=== PATIENT | male | born 1955 | race Caucasian/White ===

== ENCOUNTER 2025-04-27 10:03 | Day surgery (SDC) | payer MEDICARE ==
[2025-04-27 10:50] VITALS: TEMP 97.1
[2025-04-27] MEDS: IV FLUID CONTINUATION 1,000 ML IV ONE (10:56)
[2025-04-27] MEDS: LACTATED RINGERS 1,000 ML IV SCH (10:57)
[2025-04-27] MEDS ORDERED: PROPOFOL 10 MG/ML 20 ML VIAL IV ONE (11:43)
--- NOTE | 2025-04-27 12:04 | P.PCN ---
Date of Procedure: 04/27/25 Procedure(s) Performed: BRIEF HISTORY: Patient is a 69-year-old, pleasant, white male scheduled up anoscopy as a part evaluation of longstanding history of GERD.. History of iron deficiency in the past and was diagnosed with gastric antral vascular ectasia for which he underwent EGD with argon plasma coagulation 2 years ago. Recent labs reveal hemoglobin of 12.5 but iron was low at 9 g/dL PROCEDURE PERFORMED: Esophagogastroduodenoscopy with biopsy and argon plasma coagulation. PREOPERATIVE DIAGNOSIS: GERD/history of GAVE/iron deficiency anemia. IV sedation per anesthesia. PROCEDURE: After informed consent was obtained, the patient was brought into the endoscopy unit. IV sedation was administered by Anesthesia under continuous monitoring. Initially the Olympus GIF-140 video endoscope was inserted into the mouth. Esophagus intubated without any difficulty. It was gradually advanced into the stomach and duodenum and carefully examined. The bulb and the second part of the duodenum appeared normal. The scope at this time was withdrawn to the stomach, adequately insufflated with air, and upon careful examination, mucosa of the antrum had gastric antral vascular ectasia with active bleeding. Had the plasma coagulation was performed. Mucosa of the, body, cardia and the fundus appeared normal. The scope was then withdrawn into the esophagus. Moderate size hiatal hernia noted. The GE junction was located at 35 cm from the incisors. There were linear erosions with 1 superficial ulceration in the distal esophagus consistent with LA grade C reflux esophagitis. Questionable short segment Barroso's esophagus and biopsies were done from this area. Rest of the esophagus appeared normal and the patient tolerated the procedure well. IMPRESSION: 1. 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 2. Moderate size hiatal hernia with questionable short segment Barroso's esophagus. 3. Linear erosions with 1 superficial ulceration in the distal esophagus consistent with LA grade C reflux esophagitis. RECOMMENDATIONS: The findings of this examination were discussed with the patient as well as his family. He was advised to follow-up with the biopsy results. Increase Protonix to 40 mg twice daily and follow antireflux measures..
[2025-04-27 12:35] VITALS: BP 126/89; PULSE 77; RESP 16
== END 2025-04-27 12:57 | disposition home or self-care (01) ==
LOC: ORWHC2ENDO 10:03
PROVIDERS: ATTEND Internal Medicine Gastroenterology
DX: K31.811 Angiodysplasia of stomach and duodenum with bleeding (principal); K44.9 Diaphragmatic hernia without obstruction or gangrene; K22.10 Ulcer of esophagus without bleeding; K21.00 Gastro-esophageal reflux disease with esophagitis, without bleeding; E78.5 Hyperlipidemia, unspecified; J45.909 Unspecified asthma, uncomplicated; I10 Essential (primary) hypertension; F32.A Depression, unspecified; Z79.899 Other long term (current) drug therapy; Z79.51 Long term (current) use of inhaled steroids; Z98.890 Other specified postprocedural states; Z88.2 Allergy status to sulfonamides
CPT/HCPCS: 88305; 88312; 88313; 43239; 43255; J2704; 43270

== ENCOUNTER → 2025-06-18 | Outpatient (CLI) | payer MEDICARE ==
--- NOTE | 2025-06-18 17:59 | PE ---
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 Images are reviewed on the computer in the coronal, axial, and sagittal planes. Reconstructed rotating images are created on independent workstation and reviewed on the computer. A non-contrast CT is performed in conjunction with the PET scan. Glucose level 84 mg/dL CT DLP: 1086 mGycm, Automated exposure control for dose reduction was used. COMPARISON: CT None, PET/CT None, MRI: None FINDINGS: Mediastinal SUV mean is 1.6. Hepatic parenchyma SUV mean is 2.7. SKULL BASE AND NECK: 1. Right parapharyngeal mass measuring 4.3 x 3.2 x 7.2 cm Max SUV 16.5 2. No FDG avid lymphadenopathy at this time. CHEST, MEDIASTINUM, AND HILAR REGION: No suspicious radiotracer activity. ABDOMEN AND PELVIS: No suspicious radiotracer activity. MUSCULOSKELETAL STRUCTURES: No suspicious radiotracer activity. OTHER CT: Tracheostomy cannula terminating in the trachea above the serge. Scattered airspace opacit ies throughout the lungs. Small hiatal hernia. IMPRESSION: 1. 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 No evidence for distant metastatic disease at this time. No FDG avid lymph nodes at this time. 2. Scattered airspace opacities throughout the lungs. Correlate for atypical pneumonia. Short-term f ollow-up CT chest recommended after resolution to exclude pulmonary nodules. [facility], , 06/18/2025 5:57 PM
== END | disposition home or self-care (01) ==
LOC: RADPETMAIN 08:55
PROVIDERS: ATTEND Radiology Radiation Oncology
DX: C09.8 Malignant neoplasm of overlapping sites of tonsil (principal)
CPT/HCPCS: 78815; A9552